=== PATIENT | male | born 1975 | race Caucasian/White ===

== ENCOUNTER 2022-11-14 02:57 | Emergency (ER) | payer OTHER ==
[~2022-11-14] VITALS: Ht 180.3 cm; Wt 93.0 kg
[2022-11-14 04:25] VITALS: BP 123/82
[2022-11-14] MEDS ORDERED: MICO25PO2 MC (04:31)
--- NOTE | 2022-11-14 04:39 | NUR ---
Patient discharged to home in stable condition. Written and verbal after care instructions given. Patient verbalizes understanding of instruction.
== END 2022-11-14 04:40 | disposition home or self-care (01) ==
LOC: ER 02:59
DX: B35.6 Tinea cruris (principal)

== ENCOUNTER 2024-12-19 18:36 | Emergency (ER) | payer OTHER ==
[~2024-12-19] VITALS: Ht 180.3 cm; Wt 96.2 kg
[~2024-12-19 18:36] MED LIST: MICO25PO2 MC
[2024-12-19 19:24] VITALS: BP 121/84; TEMP 98.1; O2SAT 97
[2024-12-19] MEDS ORDERED: SIME80TA15 PO (19:44)
[2024-12-19] MEDS ORDERED: MAG HYDROX/AL HYDROX/SIMETH 30 ML UDC ONE (19:52)
[2024-12-19] MEDS: MAG HYDROX/AL HYDROX/SIMETH 30 ML UDC PO ONE (19:54)
== END 2024-12-19 20:02 | disposition home or self-care (01) ==
LOC: ER 18:46
DX: R14.0 Abdominal distension (gaseous) (principal); F17.200 Nicotine dependence, unspecified, uncomplicated; Z91.048 Other nonmedicinal substance allergy status

== ENCOUNTER 2025-04-14 20:47 | Emergency (ER) | payer OTHER ==
[~2025-04-14] VITALS: Ht 180.3 cm; Wt 93.0 kg
[~2025-04-14 20:47] MED LIST changes: +SIME80TA15 PO
[2025-04-14 21:12] VITALS: BP 94/68; TEMP 97.9; O2SAT 95
== END 2025-04-14 21:31 | disposition home or self-care (01) ==
LOC: ER 20:51
DX: K40.90 Unilateral inguinal hernia, without obstruction or gangrene, not specified as recurrent (principal); F17.200 Nicotine dependence, unspecified, uncomplicated